=== PATIENT | female | born 1945 | race Caucasian/White ===

== ENCOUNTER 2017-12-08 18:37 | Inpatient (IN) | payer MEDICARE, MEDICAID ==
[~2017-12-08] VITALS: Ht 161.3 cm; Wt 43.2 kg
[~2017-12-08 18:37] MED LIST: ADV50250 IH; DIPH-423 PO; IPRA3AMP IH; MELA10TA PO; MOT200T PO
[2017-12-08] MEDS ORDERED: albuterol 2.5 MG/3 ML nebule CONTNEB PRN (18:50)
[2017-12-08] MEDS ORDERED: methylPREDNISolone sod succ 125mg/2ml vial IV ONE (18:50)
[2017-12-08] MEDS ORDERED: normal saline 1000ML IV soln IVB ONE (18:50)
[2017-12-08] MEDS ORDERED: magnesium 2GM in 50ml NS 50 ML IV ONE (18:50)
[2017-12-08 19:18] LABS: BASOPHILS % (AUTO) 0.6 % (0-1); EOSINOPHILS # (AUTO) 0.9 X10'3 (0-0.9); EOSINOPHILS % (AUTO) 15.4 % (0-6); HEMATOCRIT 44.6 % (35.0-45.0); HEMOGLOBIN 15.4 g/dl (12.0-16.0); LYMPHOCYTES # (AUTO) 0.7 X10'3 (1.1-4.8); LYMPHOCYTES % (AUTO) 13.3 % (21-51); MEAN CORPUSCULAR HEMOGLOBIN 33.9 PG (27.0-31.0); MEAN CORPUSCULAR HGB CONC 34.6 % (33.0-36.5); MEAN PLATELET VOLUME 7.9 FL (7.4-10.4); MONOCYTES # (AUTO) 0.4 X10'3 (0-0.9); MONOCYTES % (AUTO) 7.3 % (2-12); NEUTROPHILS # (AUTO) 3.5 X10'3 (1.8-7.7); NEUTROPHILS % (AUTO) 63.4 % (42-75); PLATELET COUNT 285 X10'3 (140-440); RED BLOOD COUNT 4.55 X10'6 (4.20-5.60); RED CELL DISTRIBUTION WIDTH 15.3 % (11.5-14.5); WHITE BLOOD COUNT 5.5 X10'3 (4.5-11.0)
[2017-12-08 19:34] LABS: ALANINE AMINOTRANSFERASE 21 U/L (12-78); ALBUMIN 3.7 G/DL (3.4-5.0); ALKALINE PHOSPHATASE 98 IU/L (46-116); ANION GAP 5 (8-16); ASPARTATE AMINO TRANSFERASE 23 U/L (10-37); BILIRUBIN,TOTAL 0.4 MG/DL (0.1-1.0); BLOOD UREA NITROGEN 10 MG/DL (7-18); BUN/CREATININE RATIO 16.4 (6.6-38.0); CALCIUM 8.9 MG/DL (8.5-10.1); CHLORIDE 95 MMOL/L (99-107); CREATININE 0.61 MG/DL (0.40-0.90); GLUCOSE 120 MG/DL (70-104); POTASSIUM 4.5 MMOL/L (3.5-5.1); SODIUM 128 MMOL/L (135-145); TOTAL CARBON DIOXIDE 27.8 MMOL/L (24-32); TOTAL PROTEIN 7.3 G/DL (6.4-8.2); eGFR > 90 ML/MIN
[2017-12-08] MEDS ORDERED: enoxaparin 100mg/ml syringe SUBCUT ONE (19:40)
[2017-12-08] MEDS ORDERED: aspirin 81mg tab.chew PO ONE (19:40)
[2017-12-08] MEDS ORDERED: metoprolol tartrate 25mg tablet PO ONE (19:40)
[2017-12-08 19:41] LABS: ABG BASE EXCESS -3.2 mmol/L (-2.0-3.0); ABG HCO3 21.8 mmol/L (22.0-26.0); ABG OXYGEN SATURATION 98.2 % (95-98); ABG PCO2 (T) 38.2 mmHg (32.0-45.0); ABG PH (T) 7.372 (7.350-7.450); FLOW 4 L/min; FMetHb 0.2 % (0.3-1.12); PATIENT TEMPERATURE 36.4; TOTAL HEMOGLOBIN 14.5 G/dl (12.0-16.0)
[2017-12-08] MEDS ORDERED: LORazepam 2 mg/ml vial IV ONE (20:25)
[2017-12-08] MEDS ORDERED: mag hydrox/Alum hydrox/simeth 30ml oral suspension PO PRN (20:55)
[2017-12-08] MEDS ORDERED: ondansetron/PF 4mg/2ml inj IV PRN (20:55)
[2017-12-08] MEDS ORDERED: magnesium hydroxide 30ml (MOM) UD suspension PO PRN (20:55)
[2017-12-08] MEDS ORDERED: acetaminophen 325mg tablet PO PRN ×2 (20:55)
[2017-12-09] MEDS: normal saline 1000ml 1,000 ML IV SCH ×3 (02:34→23:35)
[2017-12-09] MEDS: methylPREDNISolone sod succ 125mg/2ml vial IV SCH ×4 (02:39→20:23)
[2017-12-09 06:33] LABS: BASOPHILS % (AUTO) 0.2 % (0-1); EOSINOPHILS % (AUTO) 0.8 % (0-6); HEMOGLOBIN 13.4 g/dl (12.0-16.0); LYMPHOCYTES # (AUTO) 0.3 X10'3 (1.1-4.8); LYMPHOCYTES % (AUTO) 13.9 % (21-51); MEAN CORPUSCULAR HEMOGLOBIN 33.7 PG (27.0-31.0); MEAN CORPUSCULAR HGB CONC 34.3 % (33.0-36.5); MEAN CORPUSCULAR VOLUME 98.2 FL (78-98); MEAN PLATELET VOLUME 7.8 FL (7.4-10.4); MONOCYTES % (AUTO) 1.1 % (2-12); NEUTROPHILS # (AUTO) 1.9 X10'3 (1.8-7.7); PLATELET COUNT 239 X10'3 (140-440); RED BLOOD COUNT 3.97 X10'6 (4.20-5.60); RED CELL DISTRIBUTION WIDTH 15.6 % (11.5-14.5); WHITE BLOOD COUNT 2.3 X10'3 (4.5-11.0)
[2017-12-09 06:41] LABS: PROTHROMBIN TIME 9.9 SECONDS (9.0-12.0)
[2017-12-09 06:45] LABS: ANION GAP 8 (8-16); BLOOD UREA NITROGEN 10 MG/DL (7-18); BUN/CREATININE RATIO 16.4 (6.6-38.0); CALCIUM 8.1 MG/DL (8.5-10.1); CHLORIDE 99 MMOL/L (99-107); CREATININE 0.61 MG/DL (0.40-0.90); GLUCOSE 137 MG/DL (70-104); POTASSIUM 4.8 MMOL/L (3.5-5.1); SODIUM 132 MMOL/L (135-145); eGFR > 90 ML/MIN
[2017-12-09 07:33] LABS: ANISOCYTOSIS 1+; LYMPHOCYTES % (MANUAL) 15 % (21-51); MONOCYTES % (MANUAL) 3 % (2-12); NEUTROPHILS % (MANUAL) 82 % (42-75); PLATELET ESTIMATE NORMAL; TOTAL CELLS COUNTED 100
[2017-12-09] MEDS ORDERED: aspirin 81mg tab.chew PO SCH (08:00)
[2017-12-09 10:55] LABS: CHOL/HDL RATIO 1.9 (0.00-4.99); CHOLESTEROL 182 MG/DL (0-200); HDL CHOLESTEROL 98 MG/DL (35-60); LDL CHOLESTEROL 81 MG/DL (50-100); TRIGLYCERIDES 31 MG/DL (20-135)
[2017-12-09] MEDS: atorvastatin 20mg tablet PO SCH (10:57)
[2017-12-09] MEDS: clopidogrel 75mg tablet PO SCH (10:57)
[2017-12-09] MEDS: carVEDilol 3.125mg tablet PO SCH ×2 (10:58→20:23)
[2017-12-09] MEDS: enoxaparin 40mg/0.4ml syringe SUBCUT SCH ×2 (10:58→20:23)
[2017-12-09 11:00] VITALS: BP 123/64
[2017-12-09] MEDS ORDERED: ASPI81TA52 PO (13:45)
[2017-12-09] MEDS ORDERED: pneumococcal 23-VAL P-sac vacc 25 mcg/0.5ml vial IMVAC ONE (14:00)
[2017-12-09] MEDS ORDERED: FLU VACC QS2017-18 36MOS UP/PF 60 MCG/0.5 ML SYRINGE IMVAC ONE (14:00)
[2017-12-09 15:00] VITALS: BP 112/63
[2017-12-09] MEDS: ipratropium/albuterol 3ml nebule NEB PRN ×2 (15:49→21:14)
[2017-12-09 15:50] LABS: D-DIMER 2.46 MG/L FEU (0-0.50)
[2017-12-09] MEDS ORDERED: iohexol 350MG/ML 100ml bottle IV ONE (17:10)
[2017-12-09 18:00] VITALS: BP 117/61
[2017-12-09] MEDS ORDERED: enoxaparin 40mg/0.4ml syringe SUBCUT SCH (21:00)
[2017-12-09 22:00] VITALS: BP 130/66
[2017-12-10] MEDS: methylPREDNISolone sod succ 125mg/2ml vial IV SCH ×4 (01:54→19:49)
[2017-12-10 02:00] VITALS: BP 110/66
[2017-12-10] MEDS: normal saline 1000ml 1,000 ML IV SCH ×2 (05:16→19:55)
[2017-12-10 06:01] LABS: ALBUMIN 2.6 G/DL (3.4-5.0); ANION GAP 5 (8-16); BASOPHILS % (AUTO) 0 % (0-1); BLOOD UREA NITROGEN 17 MG/DL (7-18); BUN/CREATININE RATIO 29.8 (6.6-38.0); CALCIUM 8.2 MG/DL (8.5-10.1); CHLORIDE 104 MMOL/L (99-107); CREATININE 0.57 MG/DL (0.40-0.90); EOSINOPHILS # (AUTO) 0.1 X10'3 (0-0.9); EOSINOPHILS % (AUTO) 1.6 % (0-6); GLUCOSE 124 MG/DL (70-104); HEMATOCRIT 35.2 % (35.0-45.0); LYMPHOCYTES # (AUTO) 0.4 X10'3 (1.1-4.8); LYMPHOCYTES % (AUTO) 4.8 % (21-51); MEAN CORPUSCULAR HEMOGLOBIN 33.8 PG (27.0-31.0); MEAN CORPUSCULAR HGB CONC 34.2 % (33.0-36.5); MEAN CORPUSCULAR VOLUME 99.1 FL (78-98); MEAN PLATELET VOLUME 8.3 FL (7.4-10.4); MONOCYTES # (AUTO) 0.3 X10'3 (0-0.9); NEUTROPHILS # (AUTO) 7.5 X10'3 (1.8-7.7); NEUTROPHILS % (AUTO) 90.6 % (42-75); PLATELET COUNT 257 X10'3 (140-440); POTASSIUM 4.2 MMOL/L (3.5-5.1); RED BLOOD COUNT 3.55 X10'6 (4.20-5.60); RED CELL DISTRIBUTION WIDTH 15.4 % (11.5-14.5); SODIUM 134 MMOL/L (135-145); TOTAL CARBON DIOXIDE 24.9 MMOL/L (24-32); WHITE BLOOD COUNT 8.3 X10'3 (4.5-11.0); eGFR > 90 ML/MIN
[2017-12-10 07:00] VITALS: BP 117/64
[2017-12-10] MEDS: ipratropium/albuterol 3ml nebule NEB PRN ×3 (07:40→20:03)
[2017-12-10] MEDS: nicotine 21mg patch - 24 hr TD SCH (08:08)
[2017-12-10] MEDS: levoFLOXACIN-Levaquin 250mg/D5 50 ML IV SCH (08:08)
[2017-12-10] MEDS: enoxaparin 40mg/0.4ml syringe SUBCUT SCH ×2 (08:09→19:50)
[2017-12-10] MEDS: aspirin 81mg tablet.DR PO SCH (08:09)
[2017-12-10] MEDS: clopidogrel 75mg tablet PO SCH (08:09)
[2017-12-10] MEDS: atorvastatin 20mg tablet PO SCH (08:09)
[2017-12-10] MEDS: carVEDilol 3.125mg tablet PO SCH ×2 (08:09→19:50)
[2017-12-10 15:00] VITALS: BP 125/62
[2017-12-10] MEDS ORDERED: ALBU2.5V7 CONTNEB (15:19)
[2017-12-10] MEDS ORDERED: ATOR20TA66 PO (15:19)
[2017-12-10] MEDS ORDERED: COR3.125T PO (15:19)
[2017-12-10] MEDS ORDERED: CLOP75TA35 PO (15:19)
[2017-12-10 18:00] VITALS: BP 141/77
[2017-12-10 22:00] VITALS: BP 129/74
[2017-12-11] MEDS: methylPREDNISolone sod succ 125mg/2ml vial IV SCH ×2 (01:40→08:24)
[2017-12-11 02:00] VITALS: BP 127/74
[2017-12-11 06:00] VITALS: BP 131/73
[2017-12-11 06:11] LABS: BASOPHILS % (AUTO) 0 % (0-1); EOSINOPHILS # (AUTO) 0.1 X10'3 (0-0.9); HEMATOCRIT 35.6 % (35.0-45.0); LYMPHOCYTES # (AUTO) 0.2 X10'3 (1.1-4.8); LYMPHOCYTES % (AUTO) 4.3 % (21-51); MEAN CORPUSCULAR HEMOGLOBIN 33.6 PG (27.0-31.0); MEAN CORPUSCULAR HGB CONC 33.8 % (33.0-36.5); MEAN CORPUSCULAR VOLUME 99.6 FL (78-98); MEAN PLATELET VOLUME 8.2 FL (7.4-10.4); MONOCYTES # (AUTO) 0.2 X10'3 (0-0.9); MONOCYTES % (AUTO) 3.6 % (2-12); NEUTROPHILS # (AUTO) 5.2 X10'3 (1.8-7.7); NEUTROPHILS % (AUTO) 91.1 % (42-75); PLATELET COUNT 268 X10'3 (140-440); RED BLOOD COUNT 3.57 X10'6 (4.20-5.60); RED CELL DISTRIBUTION WIDTH 15.3 % (11.5-14.5); WHITE BLOOD COUNT 5.7 X10'3 (4.5-11.0)
[2017-12-11 06:26] LABS: ALBUMIN 2.6 G/DL (3.4-5.0); ANION GAP 5 (8-16); BLOOD UREA NITROGEN 17 MG/DL (7-18); BUN/CREATININE RATIO 42.5 (6.6-38.0); CALCIUM 8.2 MG/DL (8.5-10.1); CHLORIDE 105 MMOL/L (99-107); GLUCOSE 130 MG/DL (70-104); POTASSIUM 3.6 MMOL/L (3.5-5.1); SODIUM 136 MMOL/L (135-145); TOTAL CARBON DIOXIDE 25.6 MMOL/L (24-32); eGFR > 90 ML/MIN
[2017-12-11] MEDS: ipratropium/albuterol 3ml nebule NEB PRN (07:20)
[2017-12-11] MEDS ORDERED: LACTOBACILLUS RHAMNOSUS GG 15 billion unit sprinkle caps PO SCH (07:30)
[2017-12-11] MEDS: nicotine 21mg patch - 24 hr TD SCH (08:00)
[2017-12-11] MEDS: clopidogrel 75mg tablet PO SCH (08:26)
[2017-12-11] MEDS: carVEDilol 3.125mg tablet PO SCH (08:26)
[2017-12-11] MEDS: aspirin 81mg tablet.DR PO SCH (08:26)
[2017-12-11] MEDS: levoFLOXACIN-Levaquin 250mg/D5 50 ML IV SCH (08:26)
[2017-12-11] MEDS: atorvastatin 20mg tablet PO SCH (08:26)
[2017-12-11] MEDS: enoxaparin 40mg/0.4ml syringe SUBCUT SCH (08:27)
== END 2017-12-11 11:45 | disposition home or self-care (01) | DRG 280 ==
LOC: ER 18:38 → ED HOLD 20:55 → PCU 3S 12-09 08:27
PROVIDERS: ADMIT Internal Medicine; ATTEND Family Medicine
DX: I21.4 Non-ST elevation (NSTEMI) myocardial infarction (principal); J96.21 Acute and chronic respiratory failure with hypoxia; E87.1 Hypo-osmolality and hyponatremia; J44.1 Chronic obstructive pulmonary disease with (acute) exacerbation; I27.20 Pulmonary hypertension, unspecified; I73.9 Peripheral vascular disease, unspecified; I08.1 Rheumatic disorders of both mitral and tricuspid valves; I10 Essential (primary) hypertension; F17.210 Nicotine dependence, cigarettes, uncomplicated; Z66 Do not resuscitate; Z99.81 Dependence on supplemental oxygen; Z90.49 Acquired absence of other specified parts of digestive tract; Z91.19 Patient's noncompliance with other medical treatment and regimen; Z79.899 Other long term (current) drug therapy; Z79.01 Long term (current) use of anticoagulants; Z88.0 Allergy status to penicillin; Z82.5 Family history of asthma and other chronic lower respiratory diseases
CPT/HCPCS: 36415; 36600; 71045; 71275; 80048; 80053; 80061; 82803; 83880; 84484; 85018; 85025; 85379; 85610; 87040; 87070; 90732; 93005; 93306; 94640; 94760; 96365; 96375; 99291; J1650; J1956; J2930; J3475; J7030; Q9967